=== PATIENT | male | born 1965 | race Two or more races ===

== ENCOUNTER 2025-06-08 09:23 | Inpatient (IN) | payer MEDICAID, OTHER ==
[~2025-06-08] VITALS: Ht 175.3 cm; Wt 88.5 kg
--- NOTE | 2025-06-08 10:19 | ED.PDOC ---
General HPI Comments This is a 60 year old male presenting to the ED with chief complaint of flank pain. Patient reports that he has been experiencing intermittent right sided flank pain for the past year since being in assisted. Patient relays that he had an ultrasound done 11 months ago with nothing found. Patient states his right sided flank pain worsened over the past 3 days, making it difficult to lay down. Patient denies any dysuria, hematuria, abdominal pain, fever, or chills. Chief Complaint: Flank Pain Time Seen by MD: 10:17 Reviewed notes: Nurses Notes, Medications, Allergies Allergies: Coded Allergies: Penicillins (Verified Allergy, Intermediate, 06/08/25) Information Source: Patient Mode of Arrival: Ambulatory Severity: Moderate Timing: Other (1 year) Duration: Since onset, Intermittent Prehospital treatment: None Onset: Spontaneous Symptoms: None History of: None Location: (R) Flank Penile discharge: None Modifying factors: None associated signs and symptoms: Flank Pain Past Medical History PAST MEDICAL HISTORY: Denies Surgical History: Denies all surgeries Family History Family History: Reviewed,noncontributory to illness Social History Smoker: Non-Smoker Alcohol: Denies ETOH Use Drugs: Denies Drug Use Lives In: Home Constitutional: denies: chills, diaphoresis, fatigue, fever, malaise, sweats, weakness, others EENTM: denies: blurred vision, double vision, ear bleeding, ear discharge, ear drainage, ear pain, ear ringing, eye pain, eye redness, hearing loss, mouth pain, mouth swelling, nasal discharge, nose bleeding, nose congestion, nose pain, photophobia, tearing, throat pain, throat swelling, voice changes, others Respiratory: denies: cough, hemoptysis, orthopnea, SOB at rest, shortness of breath, SOB with excertion, stridor, wheezing, others Cardiovascular: denies: chest pain, dizzy spells, diaphoresis, Dyspnea on exertion, edema, irregular heart beat, left arm pain, lightheadedness, palpitations, PND, syncope, others Gastrointestinal: denies: abdomen distended, abdominal pain, blood streaked bowels, constipated, diarrhea, dysphagia, difficulty swallowing, hematemesis, melena, nausea, poor appetite, poor fluid intake, rectal bleeding, rectal pain, vomiting, others Genitourinary: reports: flank pain; denies: burning, dysuria, frequency, hematuria, incontinence, penile discharge, penile sore, pain, testicle pain, testicle swelling, urgency, others Neurological: denies: dizziness, fainting, headache, left sided numbness, left sided weakness, numbness, paresthesia, pre-existing deficit, right sided numbness, right sided weakness, seizure, speech problems, tingling, tremors, weakness, others Musculoskeletal: denies: back pain, gout, joint pain, joint swelling, muscle pain, muscle stiffness, neck pain, others Integumetry: denies: bruises, change in color, change in hair/nails, dryness, laceration, lesions, lumps, rash, wounds, others Allergic/Immunocompromised: denies: Difficulty Healing, Frequent Infections, Hives, Itching, others Hematologic/Lymphatic: denies: anemia, blood clots, easy bleeding, easy bruising, swollen glands, others Endocrine: denies: excessive hunger, excessive sweating, excessive thirst, excessive urination, flushing, intolerance to cold, intolerance to heat, unexplained weight gain, unexplained weight loss, others Psychiatric: denies: anxiety, bipolar disorder, depression, hopeless, panic disorder, schizophrenia, sleepless, suicidal, others All Other Systems: Reviewed and Negative Physical Exam General Appearance: No Apparent Distress, Normal HEENT: Normal ENT Inspection, Pharynx Normal, TMs Normal Neck: Full Range of Motion, Non-Tender, Normal, Normal Inspection Respiratory: Chest Non-Tender, Lungs Clear, No Accessory Muscle Use, No Respiratory Distress, Normal Breath Sounds Cardiovascular: No Edema, No JVD, No Murmur, No Gallop, Normal Peripheral Pulses, Regular Rate/Rhythm Breast Exam: Deferred Gastrointestinal: No Organomegaly, Non Tender, No Pulsatile Mass, Normal Bowel Sounds, Soft Genitalia: Deferred Pelvic: Deferred Rectal: Deferred Extremities: No calf tenderness, Normal capillary refill, Normal inspection, Normal range of motion, Non-tender, No pedal edema Musculoskeletal : Location: Right Apperance: Normal, Tenderness (CVA tenderness) Neurologic: Alert, strategic planning consultant II-XII nml as Tested, No Motor Deficits, Normal Affect, Normal Mood, No Sensory Deficits Cerebellar Function: Normal Reflexes: Normal Skin: Dry, Normal Color, Warm Lymphatic: No Adenopathy Was a procedure done? Was a procedure done?: No Differential Diagnosis Kidney stone (Female): N/A Kidney stone (Male): Pyelonephritis, Strain, Urinary obstruction, Urolithiasis Urinary Problem (Male): UTI X-Ray, Labs, Meds, VS Vital Signs Date Time Temp Pulse Resp B/P (MAP) Pulse Ox O2 Delivery O2 Flow Rate FiO2 06/08/25 13:50 81 16 137/94 06/08/25 13:39 81 16 137/94 (108) 97 06/08/25 09:32 98.0 103 18 127/91 96 98.0 Lab Test 06/08/25 15:11 06/08/25 12:51 06/08/25 11:49 06/08/25 09:46 Range/Units Troponin I High Sensitivity Pending 4 5 </=54 ng/L White Blood Count 5.7 4.4-10.8 10^3/uL Red Blood Count 5.25 4.5-5.90 10^6/uL Hemoglobin 14.9 13.5-17.5 g/dL Hematocrit 45.1 41.0-53.0 % Mean Corpuscular Volume 85.8 80.0-100.0 fL Mean Corpuscular Hemoglobin 28.3 28.0-32.0 pg Mean Corpuscular Hemoglobin Concent 33.0 32.0-36.0 g/dL Red Cell Distribution Width 15.5 H 11.8-14.3 % Platelet Count 311 140-450 10^3/uL Mean Platelet Volume 7.0 6.9-10.8 fL Neutrophils (%) (Auto) 58.3 37.0-80.0 % Lymphocytes (%) (Auto) 29.8 10.0-50.0 % Monocytes (%) (Auto) 9.2 0.0-12.0 % Eosinophils (%) (Auto) 2.3 0.0-7.0 % Basophils (%) (Auto) 0.4 0.0-2.0 % Neutrophils # (Auto) 3.3 1.6-8.6 10 ^3/uL Lymphocytes # (Auto) 1.7 0.4-5.4 10 ^3/uL Monocytes # (Auto) 0.5 0-1.3 10 ^3/uL Eosinophils # (Auto) 0.1 0-0.8 10 ^3/uL Basophils # (Auto) 0 0-0.2 10 ^3/uL Nucleated Red Blood Cells 0.1 % Sodium Level 143 136-145 mmol/L Potassium Level 4.6 3.5-5.1 mmol/L Chloride Level 107 98-107 mmol/L Carbon Dioxide Level 30 20-31 mmol/L Anion Gap 6 5-15 Blood Urea Nitrogen 10 9-23 mg/dL Creatinine 1.03 0.700-1.30 mg/dL Glomerular Filtration Rate Calc 82 >90 mL/min BUN/Creatinine Ratio 9.7 L 10.0-20.0 Serum Glucose 93 74-106 mg/dL Calcium Level 9.5 8.7-10.4 mg/dL Urine Color Yellow Yellow Urine Clarity Clear Clear Urine pH 5.0 5.0-9.0 Urine Specific [place] 1.023 1.001-1.035 Urine Protein Negative Negative Urine Ketones Negative Negative Urine Blood 1+ H Negative /uL Urine Nitrite Negative Negative Urine Bilirubin Negative Negative Urine Urobilinogen Normal Negative mg/dL Urine Leukocyte Esterase Negative Negative /uL Urine RBC 1 0 - 3 /hpf Urine Microscopic WBC < 1 0-3 /HPF Urine Squamous Epithelial Cells Few <5 /hpf Urine Bacteria None seen None Seen /hpf Urine Mucus Few None Seen Urine Glucose Normal Normal mg/dL Current Medications Medications (Trade) Dose Ordered Sig/Leila Route Start Time Stop Time Status Last Admin Sodium Chloride 1,000 ml @ 1,000 mls/hr Q1H ONCE IV 06/08/25 11:30 06/08/25 12:29 DC 06/08/25 13:52 Morphine Sulfate 4 mg ONCE ONCE IV 06/08/25 11:30 06/08/25 11:31 DC 06/08/25 13:50 Ondansetron HCl (Zofran) 4 mg ONCE ONCE IV 06/08/25 11:30 06/08/25 11:31 DC 06/08/25 13:52 Time of 1ST Reevaluation: 11:16 Reevaluation 1ST: Unchanged Patient Education/Counseling: Diagnosis, Treatment Family Education/Counseling: No Family Present SEPSIS Sepsis Screen Date sepsis recognized/suspect: Jun 08, 2025 Time Sepsis recognized/suspect: 934 Recent Procedure: No On Antibiotic Therapy: No Respiratory Rate >20: No Heart Rate >90: No Temp<36 C (96.8 F) or >38.3 C: No SBP <90 or MAP <65 mmHG: No New Acute Mental Status Change: No Is the patient on CPAP, BIPAP,: No Physician Orders Ct Ab Pel With Iv Con Only (06/08/25 11:26) Chest Portable (06/08/25 11:26) Troponin-I Hs (06/08/25 14:26) Vital Signs Date Time Temp Pulse Resp B/P (MAP) Pulse Ox O2 Delivery O2 Flow Rate FiO2 06/08/25 13:50 81 16 137/94 06/08/25 13:39 81 16 137/94 (108) 97 06/08/25 09:32 98.0 103 18 127/91 96 98.0 Laboratory Tests Test 06/08/25 11:49 White Blood Count 5.7 10^3/uL (4.4-10.8) Medications Medications Dose Ordered Sig/Leila Route Start Time Stop Time Status Last Admin Dose Admin Morphine Sulfate 4 mg ONCE ONCE IV 06/08/25 11:30 06/08/25 11:31 DC 06/08/25 13:50 Ondansetron HCl 4 mg ONCE ONCE IV 06/08/25 11:30 06/08/25 11:31 DC 06/08/25 13:52 Sodium Chloride 1,000 ml @ 1,000 mls/hr Q1H ONCE IV 06/08/25 11:30 06/08/25 12:29 DC 06/08/25 13:52 Departure 1 Departure Time of Disposition: 15:36 (Patient presented with abdominal pain that was concerning for possible appendicits, gastritis, cholecystitis, colitis, gastroenteritis, sbo, or orther possible surgical emergency. Data: 1. I ordered and reviewed the result of at least 3 labs including a CBC, BMP, and Urinalysis. 2. I independently interpreted the following tests: CT Abdomen and Pelvis is concerning for inguinal hernia .Risk:This patient has a high risk of morbidity due to further diagnostic testing or treatment and may suffer from an acute abdominal process disorder. Workup reveals intractable abdominal pain and patient should be admitted for further workup. and possible expert consultation. ) Impression: Primary Impression: Intractable abdominal pain Additional Impression: Left inguinal hernia Disposition: ADMITTED INPATIENT Admit to: Med Surg Condition: Serious Critical Care Note Critical Care Time?: Yes Critical care comment: Intractable abdominal pain Authorized and Performed by: Gardenia Cross MD Total critical care time: Approximately 38 minutes Due to a high probability of clinically significant, life threatening deterioration, the patient required my highest level of preparedness to intervene emergently and I personally spent this critical care time directly and personally managing the patient. This critical care time included obtaining a history; examining the patient; pulse oximetry; ordering and review of studies; arranging urgent treatment with development of a management plan; evaluation of patient's response to treatment; frequent reassessment; and, discussions with other providers. This critical care time was performed to assess and manage the high probability of imminent, life-threatening deterioration that could result in multi-organ failure. It was exclusive of separately billable procedures and treating other patients and teaching time. Please see my other sections and the rest of the note for further information on patient assessment and treatment. Stability Stability form required: No Heart Score Heart Score: Heart Score Response (Comments) Value History N/A 0 EKG N/A 0 Age N/A 0 Risk Factors N/A 0 Troponin N/A 0 Total 0 I personally scribed for GARDENIA CROSS MD ([email or web address]) on 06/08/25 at 10:19. Electronically submitted by Pavel Mast ([email or web address]). GARDENIA CROSS MD Jun 08, 2025 10:19
--- NOTE | 2025-06-08 11:54 | DVH ---
XY CHEST PORTABLE, HISTORY: abdominal pain COMPARISON: None None TECHNICAL DATA: 1 view of the chest was obtained. FINDINGS: Lines and tubes: None Cardiomediastinal silhouette: normal Pulmonary vasculature: normal Lung expansion: normal Lung airspace: Left basilar airspace opacity could be atelectasis. Lung interstitium: normal Pleura: normal Pneumothorax: no Bones: Unremarkable Other: no IMPRESSION: Left basilar airspace opacity could be atelectasis.
[2025-06-08 12:46] LABS: Hematocrit 45.1 % (41.0-53.0); Hemoglobin 14.9 g/dL (13.5-17.5); Mean Corpuscular Hemoglobin 28.3 pg (28.0-32.0); Mean Corpuscular Volume 85.8 fL (80.0-100.0); Nucleated Red Blood Cells % 0.1 %
[2025-06-08 12:52] LABS: Anion Gap 6 (5-15); Carbon Dioxide 30 mmol/L (20-31); Chloride 107 mmol/L (98-107); Potassium 4.6 mmol/L (3.5-5.1); Sodium 143 mmol/L (136-145)
[2025-06-08 12:53] LABS: Calcium 9.5 mg/dL (8.7-10.4)
[2025-06-08 12:58] LABS: BUN/Creatinine Ratio 9.7 (10.0-20.0); Blood Urea Nitrogen 10 mg/dL (9-23); Glucose 93 mg/dL (74-106)
[2025-06-08 13:09] LABS: Urine Protein, UAD Negative (Negative)
[2025-06-08] MEDS: MORPHINE SULFATE 4 MG/ML SYR/VIAL IV ONE (13:50)
[2025-06-08] MEDS: SODIUM CHLORIDE 0.9% 1,000 ML IV ONE (13:52)
[2025-06-08] MEDS: ONDANSETRON HCL 4 MG/2 ML VIAL IV ONE (13:52)
[2025-06-08] MEDS: IOHEXOL 300 MG/ML 100ML BOTTLE IJ ONE (14:35)
--- NOTE | 2025-06-08 15:11 | DVH ---
Indication: flank pain Technique: CT axial images of the abdomen and pelvis are obtained with contrast. Coronal and sagittal reformats were obtained. Radiation Dose Information: CTDI volume is 20.18 mGy. Dose-length product is 1258.83 mGy*cm Comparison: None FINDINGS: Lung bases demonstrate atelectasis. Borderline cardiomegaly. Adrenal glands, spleen, pancreas unremarkable. No enhancing hepatic lesion. No CT evidence for cholelithiasis. No hydronephrosis. Stomach is partially distended. Small bowel loops normal in caliber. Colonic diverticular disease. Moderate volume stool in the colon. Normal appendix. Abdominal aortic atherosclerotic disease. Bladder contracted. No free pelvic fluid. Fat containing left inguinal hernia measuring 1.9 x 2.7 cm. No inguinal lymphadenopathy. [id number] bilateral sacroiliac degenerative joint disease. [id number] thoracolumbar degenerative disc disease more pronounced within the thoracic spine. IMPRESSION: No hydronephrosis. Colonic diverticular disease. Left inguinal hernia containing fat measuring 1.9 x 2.7 cm. Other findings as described
[2025-06-08] MEDS ORDERED: ONDANSETRON HCL 4 MG/2 ML VIAL IV PRN (21:00)
[2025-06-08] MEDS ORDERED: HYDROmorphone HCL 2 MG/ML VL/or syr IV PRN (21:00)
[2025-06-08] MEDS ORDERED: ACETAMINOPHEN 325 MG TAB PO PRN (21:00)
--- NOTE | 2025-06-08 22:16 | DVH ---
OB ULTRASOUND <14 WEEKS: HISTORY: pain in ruq, rule out cholecystitis/lithiasis TECHNIQUE: Multiple real-time grayscale sonographic images of the abdomen. COMPARISON: CT CT AB PEL WITH IV CON ONLY on DOS: 06/08/25 FINDINGS: Liver: Normal in size measuring 13.3 cm with mild diffuse fatty infiltration. No focal lesions. Gallbladder: No stones, distention, wall thickening, or inflammatory changes. CBD measures 0.5 cm, within normal limits. Pancreas: Not well seen due to overlying bowel gas. Right kidney: 9.4 cm. No stones or hydronephrosis. IMPRESSION: No clear cause for pain. Mild hepatic steatosis.
[2025-06-08 22:29] VITALS: PULSE 85; RESP 16; O2SAT 98
[2025-06-08 22:30] LABS: Amphetamine Screen, Urine Neg (NEGATIVE); Barbiturate Scree,Urine Neg (NEGATIVE); Benzodiazephine Screen, Urine Neg (NEGATIVE); Cannabinoid Screen, Urine Neg (NEGATIVE); Cocaine Screen, Urine Neg (NEGATIVE); Opiate Scree,Urine Neg (NEGATIVE); Phencyclidine Screen, Urine Neg (NEGATIVE)
[2025-06-08 22:31] LABS: Alanine Aminotransferase 26 U/L (7-40); Albumin 3.9 g/dL (3.2-4.8); Alkaline Phosphatase 95 U/L (46-116); Magnesium 2.0 mg/dL (1.6-2.6); Total Protein 6.5 g/dL (5.7-8.2)
[2025-06-08 22:38] LABS: Bilirubin, Direct < 0.1 mg/dL (<0.3); Bilirubin, Total 0.3 mg/dL (0.2-1.0)
[2025-06-08 22:59] VITALS: BP 141/86; PULSE 91; RESP 16; TEMP 98.1; O2SAT 95
[2025-06-08 23:03] LABS: Lipase 45 U/L (12-53)
[2025-06-08] MEDS ORDERED: AMLO1TAB23 PO (23:14)
[2025-06-08] MEDS ORDERED: ASPI-543 PO (23:14)
[2025-06-08] MEDS: PANTOPRAZOLE 40 MG/10 ML VIAL INJ IV ONE (23:25)
[2025-06-08] MEDS: POLYETHYLENE GLYCOL 17 GM PWDR PO ONE (23:25)
[2025-06-08] MEDS: BISACODYL 5 MG EC TAB PO ONE (23:26)
[2025-06-08] MEDS: HYDROcodone-ACET 5/325MG TAB PO ONE (23:27)
[2025-06-08] MEDS: ENOXAPARIN SOD 40 MG/0.4 ML SYRINGE SC SCH (23:28)
--- NOTE | 2025-06-08 23:53 | DVHHPRES ---
History of Present Illness Resident Creating Document: KINSEY REAL RESIDENT History of Present Illness 60-year-old male with a past medical history of hypertension and hepatitis-B came with chief complaints of abdominal pain. Patient reports that he has been having this pain for over a year but in the last 3 days the pain has increased, is in the upper right and lower right quadrant, 10/10 in intensity, radiates to the back, relieved by holding his breath and stretching, no aggravating factors. Patient reports having normal bowel movements and denies any urinary symptoms, GERD symptoms, nausea, vomiting, shortness of breath, chest pain, or sick contacts. He does report that he was in custodial for 1 year. Patient also reports having 3 lumps in his body- 1 in the right chest near the nipple, 1 in the left lower abdomen and 1 above the left elbow. He denies any genital symptoms or discharge. On admission he was slightly tachycardic pulse 103, rest of the vitals were stable, temp 98, RR 16, BP 147/92 mmHg, SpO2 98% on room air. CT abdomen and pelvis shows no hydronephrosis, colonic diverticulosis, left inguinal hernia with fat, moderate stool burden, sacroiliac and thoracolumbar degenerative disease. Past medical history: Hypertension, hepatitis-B Past surgical history: None Family history: Reviewed, noncontributory to the management of this case Social history: Smokes cigars once in a while, quit smoking 30 years ago, quit alcohol used to drink 1-2 beers a week and had no limit on weekend parties, denies any illicit drug abuse Allergies: Penicillin, amoxicillin PCP: Does not have 1 Code status: Full code Review of Systems Constitutional: No: Fever, Chills, Sweats, Weakness, Malaise, Other Eyes: No: Pain, Vision change, Conjunctivae inflammation, Eyelid inflammation, Other, Redness ENT: No: Ear pain, Ear discharge, Nose pain, Nose discharge, Nose congestion, Mouth pain, Mouth swelling, Throat pain, Throat swelling, Other Respiratory: No: Cough, Dry, Shortness of breath, SOB with excertion, Wheezing, Hemoptysis, Pleuritic Pain, Sputum, Wheezing, Other Cardiovascular: No: Chest Pain, Palpitations, Orthopnea, Paroxysmal Noc. Dyspnea, Edema, Lt Headedness, Other Gastrointestinal: Abdominal Pain; No: Nausea, Vomiting, Diarrhea, Constipation, Melena, Hematochezia, Other Genitourinary: No Dysuria, No Frequency, No Incontinence, No Hematuria, No Retention, No Other Musculoskeletal: No: other, neck pain, shoulder pain, arm pain, back pain, hand pain, leg pain, foot pain Skin: No: Rash, Lesions, Jaundice, Bruising, Other Neurological: No: Weakness, Numbness, Incoordination, Change in speech, Confusion, Seizures, Other Allergies: Coded Allergies: Penicillins (Verified Allergy, Intermediate, 06/08/25) Medications Current Medications Medications Dose Ordered Sig/Leila Route Start Time Stop Time Status Last Admin Dose Admin Acetaminophen/ Hydrocodone Bitart 1 tab Q4HP PRN PO 06/08/25 21:00 Ondansetron HCl 4 mg Q4HP PRN IV 06/08/25 21:00 Acetaminophen 650 mg Q6HP PRN PO 06/08/25 21:00 Enoxaparin Sodium 40 mg DAILY@2100 SC 06/08/25 21:00 06/08/25 23:28 40 MG Hydromorphone HCl 0.25 mg Q4HPRN PRN IV 06/08/25 21:00 Enalapril Maleate 10 mg DAILY PO 06/09/25 10:00 Pantoprazole Sodium 40 mg DAILY PO 06/09/25 10:00 Exam Vital Signs Vital Signs Date Time Temp Pulse Resp B/P (MAP) Pulse Ox O2 Delivery O2 Flow Rate FiO2 06/08/25 22:59 98.1 91 16 141/86 (104) 95 98.1 06/08/25 22:29 Room Air* 0 21 Exam Pt is lying on bed General Appearance: Alert, Oriented X3, Cooperative, Not in acute distress HEENT: Atraumatic, Mucous membranes moist/pink Respiratory: Clear to auscultation, Normal air movement, No added sounds Cardiovascular: Regular rate, Normal S1, Normal S2, No murmurs Abdominal: Active bowel sounds, Soft, no distention, no tenderness Extremities: No edema, Normal pulses, No tenderness/swelling Skin: No Significant rash, presence of small 1 x 1 cm lumps below right nipple, above left olecranon process of the elbow and left lower quadrant of abdomen, tender, movable Neuro: Normal speech, sensorimotor deficits none Psych/Mental Status: Mental status NL, Mood NL Labs/Xrays Labs Test 06/08/25 15:11 06/08/25 12:51 06/08/25 11:49 06/08/25 09:46 Range/Units Magnesium Level 2.0 1.6-2.6 mg/dL Total Bilirubin 0.3 0.2-1.0 mg/dL Direct Bilirubin < 0.1 <0.3 mg/dL Aspartate Amino Transferase (AST) 22 13-40 U/L Alanine Aminotransferase (ALT) 26 7-40 U/L Alkaline Phosphatase 95 46-116 U/L Troponin I High Sensitivity 4 </=54 ng/L Total Protein 6.5 5.7-8.2 g/dL Albumin 3.9 3.2-4.8 g/dL Lipase 45 12-53 U/L White Blood Count 5.7 4.4-10.8 10^3/uL Red Blood Count 5.25 4.5-5.90 10^6/uL Hemoglobin 14.9 13.5-17.5 g/dL Hematocrit 45.1 41.0-53.0 % Mean Corpuscular Volume 85.8 80.0-100.0 fL Mean Corpuscular Hemoglobin 28.3 28.0-32.0 pg Mean Corpuscular Hemoglobin Concent 33.0 32.0-36.0 g/dL Red Cell Distribution Width 15.5 H 11.8-14.3 % Platelet Count 311 140-450 10^3/uL Mean Platelet Volume 7.0 6.9-10.8 fL Neutrophils (%) (Auto) 58.3 37.0-80.0 % Lymphocytes (%) (Auto) 29.8 10.0-50.0 % Monocytes (%) (Auto) 9.2 0.0-12.0 % Eosinophils (%) (Auto) 2.3 0.0-7.0 % Basophils (%) (Auto) 0.4 0.0-2.0 % Neutrophils # (Auto) 3.3 1.6-8.6 10 ^3/uL Lymphocytes # (Auto) 1.7 0.4-5.4 10 ^3/uL Monocytes # (Auto) 0.5 0-1.3 10 ^3/uL Eosinophils # (Auto) 0.1 0-0.8 10 ^3/uL Basophils # (Auto) 0 0-0.2 10 ^3/uL Nucleated Red Blood Cells 0.1 % Sodium Level 143 136-145 mmol/L Potassium Level 4.6 3.5-5.1 mmol/L Chloride Level 107 98-107 mmol/L Carbon Dioxide Level 30 20-31 mmol/L Anion Gap 6 5-15 Blood Urea Nitrogen 10 9-23 mg/dL Creatinine 1.03 0.700-1.30 mg/dL Glomerular Filtration Rate Calc 82 >90 mL/min BUN/Creatinine Ratio 9.7 L 10.0-20.0 Serum Glucose 93 74-106 mg/dL Calcium Level 9.5 8.7-10.4 mg/dL B-Type Natriuretic Peptide 2.85 0-100 pg/mL HIV (1&2) Antibody Negative Negative Urine Color Yellow Yellow Urine Clarity Clear Clear Urine pH 5.0 5.0-9.0 Urine Specific [place] 1.023 1.001-1.035 Urine Protein Negative Negative Urine Ketones Negative Negative Urine Blood 1+ H Negative /uL Urine Nitrite Negative Negative Urine Bilirubin Negative Negative Urine Urobilinogen Normal Negative mg/dL Urine Leukocyte Esterase Negative Negative /uL Urine RBC 1 0 - 3 /hpf Urine Microscopic WBC < 1 0-3 /HPF Urine Squamous Epithelial Cells Few <5 /hpf Urine Bacteria None seen None Seen /hpf Urine Mucus Few None Seen Urine Glucose Normal Normal mg/dL Urine Opiates Screen Neg NEGATIVE Urine Fentanyl Screen Neg NEGATIVE Urine Barbiturates Screen Neg NEGATIVE Urine Phencyclidine Screen Neg NEGATIVE Urine Amphetamines Screen Neg NEGATIVE Urine Benzodiazepines Screen Neg NEGATIVE Urine Cocaine Screen Neg NEGATIVE Urine Cannabinoids Screen Neg NEGATIVE SEPSIS Sepsis Screen Date sepsis recognized/suspect: Jun 08, 2025 Time Sepsis recognized/suspect: 2228 Recent Procedure: No On Antibiotic Therapy: No Respiratory Rate >20: No Heart Rate >90: No Temp<36 C (96.8 F) or >38.3 C: No SBP <90 or MAP <65 mmHG: No New Acute Mental Status Change: No Is the patient on CPAP, BIPAP,: No Physician Orders Cardiac Diet-2gna,Lofat,Lochol (06/08/25 Dinner) Admit (06/08/25 20:52) Code Status (06/08/25 20:52) Hydrocodone-Acet 5/325mg Tab ([place] (06/08/25 21:00) Ondansetron Hcl (Zofran) (06/08/25 21:00) Complete Blood Count (06/09/25 04:00) Comprehensive Metabolic Panel (06/09/25 04:00) Echo 2d Mode Cardiac Dop (06/08/25 20:52) Condition: Fair (06/08/25 20:52) Acetaminophen Tablet (Tylenol Tablet) (06/08/25 21:00) Enoxaparin Sodium (Lovenox) (06/08/25 21:00) Comprehensive Hepatitis Panel (06/08/25 20:52) Chlamydia/Gc Amplification (06/08/25 20:52) Hydromorphone Injection (Dilaudid Inject (06/08/25 21:00) Enalapril Tablet (Vasotec Tablet) (06/09/25 10:00) Pantoprazole Tablet (Protonix Tablet) (06/09/25 10:00) LIVER (06/08/25 20:52) Incentive Spirometry Q 1hr (06/08/25 20:52) Hepatitis C Antibody (06/08/25 20:52) Vital Signs Date Time Temp Pulse Resp B/P (MAP) Pulse Ox O2 Delivery O2 Flow Rate FiO2 06/08/25 22:59 98.1 91 16 141/86 (104) 95 98.1 06/08/25 22:29 85 16 98 Room Air* 0 21 06/08/25 22:29 95 16 142/89 (106) 95 06/08/25 19:00 85 16 147/92 (110) 98 06/08/25 16:32 88 16 135/90 (105) 98 Medications Medications Dose Ordered Sig/Leila Route Start Time Stop Time Status Last Admin Dose Admin Acetaminophen/ Hydrocodone Bitart 1 tab ONCE ONCE PO 06/08/25 21:00 06/08/25 21:39 DC 06/08/25 23:27 1 TAB Bisacodyl 10 mg ONCE ONCE PO 06/08/25 21:00 06/08/25 21:39 DC 06/08/25 23:26 10 MG Enoxaparin Sodium 40 mg DAILY@2100 SC 06/08/25 21:00 06/08/25 23:28 40 MG Pantoprazole Sodium 40 mg ONCE ONCE IV 06/08/25 21:00 06/08/25 21:39 DC 06/08/25 23:25 40 MG Polyethylene Glycol 17 gm ONCE ONCE PO 06/08/25 21:00 06/08/25 21:39 DC 06/08/25 23:25 17 GM Assessment/Plan Assessment/Plan #Intractable abdominal, likely due to constipation #Slow transit constipation #hx of hepatitis B #Rule out venereal disease - CT abdomen shows: No hydronephrosis; Colonic diverticular disease; Left inguinal hernia containing fat measuring 1.9 x 2.7 cm; Moderate volume stool in the colon. - MiraLAX 17 g p.o. given once - pain medication with: acetaminophen 650 mg q.6 PRN for mild pain [place] 5/325 mg p.o. q.4 PRN for moderate pain - IV ondansetron 4 mg PRN - IV fluids normal saline 0.9% - Protonix 40 mg IV daily - comprehensive hepatitis panel - chlamydia / GC amplification - HIV 1 and 2 antibody negative - ultrasound liver shows mild hepatic steatosis - UDS negative - UA negative #Hypertension -Continue home medication enalapril 10 mg p.o. daily - bilateral +1 pitting edema- BNP, echo - chest x-ray shows left basilar airspace opacity could be atelectasis- incentive spirometry begun #Colonic diverticular disease #Thoracolumbar and sacroiliac degenerative joint disease - CT abdomen and pelvis shows incidental finding- [id number] bilateral sacroiliac degenerative joint disease. [id number] thoracolumbar degenerative disc disease more pronounced within the thoracic spine. - outpatient follow up GI prophylaxis: Protonix 40 mg IV daily DVT prophylaxis: Lovenox 40 mg SC daily Diet: Cardiac diet Goals of care discussed with the patient for more than 27 minutes: Full code status Case discussed with Dr. Griffin, patient Plan discussed with: Patient My Orders Orders - KINSEY REAL RESIDENT Procedure Category Date Status Time Admit ADMIT 06/08/25 Transmitted 20:52 Code Status CODE 06/08/25 Transmitted 20:52 Hydrocodone-Acet PHA 06/08/25 In Process 5/325mg Tab ([place] 21:00 Ondansetron Hcl PHA 06/08/25 In Process (Zofran) 21:00 Complete Blood Count LAB 06/09/25 Verified 04:00 Comprehensive LAB 06/09/25 Verified Metabolic Panel 04:00 Echo 2d Mode Cardiac US 06/08/25 Logged DOP 20:52 Condition: Fair LIYAH 06/08/25 In Process 20:52 Acetaminophen Tablet PHA 06/08/25 In Process (Tylenol Tablet) 21:00 Enoxaparin Sodium PHA 06/08/25 In Process (Lovenox) 21:00 Comprehensive LAB 06/08/25 In Process Hepatitis Panel 20:52 Chlamydia/Gc LAB 06/08/25 In Process Amplification 20:52 Hydromorphone PHA 06/08/25 In Process Injection (Dilaudid 21:00 Enalapril Tablet PHA 06/09/25 In Process (Vasotec Tablet) 10:00 Pantoprazole Tablet PHA 06/09/25 In Process (Protonix Tablet) 10:00 LIVER US 06/08/25 Resulted 20:52 Incentive Spirometry ORDERS 06/08/25 Transmitted Q 1hr 20:52 Hepatitis C Antibody LAB 06/08/25 In Process 20:52 Date of Service: Jun 09, 2025 Billing Provider: SAMANTHA GRIFFIN MD Common Visit Codes: 52749-LUNFOER INP/OBS CARE (HIGH) Secondary Visit Codes: 74257-[id number] CARE PLAN 30 MINUTES KINSEY REAL RESIDENT Jun 08, 2025 23:53
[2025-06-09] VITALS (8 sets, daily range): BP systolic 115–138; BP diastolic 72–95; PULSE 68–136; RESP 16–18; TEMP 97.6–98.5; O2SAT 96–99
[2025-06-09 05:57] LABS: Hematocrit 40.4 % (41.0-53.0); Hemoglobin 13.3 g/dL (13.5-17.5); Mean Corpuscular Hemoglobin 28.2 pg (28.0-32.0); Mean Corpuscular Volume 85.7 fL (80.0-100.0); Nucleated Red Blood Cells % 0.1 %
[2025-06-09 06:29] LABS: Alanine Aminotransferase 18 U/L (7-40); Albumin 3.5 g/dL (3.2-4.8); Alkaline Phosphatase 73 U/L (46-116); Anion Gap 7 (5-15); BUN/Creatinine Ratio 10.5 (10.0-20.0); Blood Urea Nitrogen 10 mg/dL (9-23); Calcium 8.9 mg/dL (8.7-10.4); Carbon Dioxide 27 mmol/L (20-31); Chloride 109 mmol/L (98-107); Glucose 101 mg/dL (74-106); Potassium 4.2 mmol/L (3.5-5.1); Sodium 143 mmol/L (136-145); Total Protein 5.8 g/dL (5.7-8.2)
[2025-06-09 06:30] LABS: Bilirubin, Total 0.3 mg/dL (0.2-1.0)
[2025-06-09] MEDS: ENALAPRIL MALEATE 10 MG TAB PO SCH (10:01)
[2025-06-09] MEDS: PANTOPRAZOLE 40 MG TAB PO SCH (10:01)
[2025-06-09] MEDS: HYDROcodone-ACET 5/325MG TAB PO PRN (10:02)
[2025-06-09] MEDS: LACTATED RINGER'S 1,000 ML IV SCH (13:02)
--- NOTE | 2025-06-09 13:53 | DVHPNRES ---
Progress Note Date Seen: Jun 09, 2025 Resident Creating Document: JHONNY HIGGINS RESIDENT Medical Necessity Reason Pt with a Central, PICC or Fol: No Subjective Review of Systems 60-year-old male with a past medical history of hypertension, hepatitis-B, dyslipidemia, osteoarthritis presented with complaints of left-sided abdominal pain radiating to the back. He states that he can not sleep because of the pain. He rated the pain 10 on 10 in intensity, sharp, on and off, decreased on sitting straight. Patient states that the pain started 1 year ago while he was in the detention but aggravated 3 days back. He reports of having normal bowel movements and denies any urinary symptoms, GERD symptoms, nausea vomiting or shortness of breath. Patient also complains of having 3 lumps in his body, the chest, abdomen and elbow. PMHx:hypertension, hepatitis-B, dyslipidemia, osteoarthritis PSHx: None Family history: Nonrelevant Social history: 25 pack-year smoking history, denies alcohol and drug use, lives in a transitional house Allergic history: Penicillin, amoxicillin General: patient denies fever, fatigue, weaknes, sweating, any recent changes in appetite and weight HEENT: No headaches, visiual changes, hearing loss, tinnitus, nasal congestion and discharge, and sore throat. Cardiovascular: Denies chest pain, palpitations, dyspnea on exertion, orthopnea, or claudication. Respiratory: No cough, and wheezing. Gastrointestinal: Denies nausea, vomiting, dysphagia, odynophagia, heartburn, flatulence, bloating, diarrhea, constipation, change in stool, or blood in stool. Complains of abdominal pain Genitourinary: No dysuria, hematuria, discharge, frequency, urgency, nocturia, incontinence, and urinary retention. Endocrine: No heat or cold intolerance, polydipsia, polyuria, and polyphagia. Neurological: No dizziness, extremity weakness and numbness, tremors, gait disturbance, seizures, and memory impairment. Psychiatric: Denies depression, anxiety,or insomnia. Musculoskeletal: Denies neck pain, stiffness and swelling, back pain, muscle weakness, joint pain, stiffness, swelling, or limited range of motion. Skin: No rashes, itching, skin lesion, changes in hair, nail, skin texture and breast. Hematologic/Lymphatic: Denies easy bruising, bleeding tendencies, or lymph node enlargement. Objective vital signs Vital Sign Date Time Temp Pulse Resp B/P (MAP) Pulse Ox O2 Delivery O2 Flow Rate FiO2 06/09/25 10:01 134/95 06/09/25 08:00 70 16 97 Room Air* 0 21 06/09/25 05:00 97.7 97.7 Total Intake and Output 06/08/25 06/08/25 06/09/25 15:00 23:00 07:00 Intake Total 1000 ml 0 ml Output Total 0 ml Balance 1000 ml 0 ml medications Current Medications Medications Dose Ordered Sig/Leila Route Start Time Stop Time Status Last Admin Dose Admin Acetaminophen/ Hydrocodone Bitart 1 tab Q4HP PRN PO 06/08/25 21:00 06/09/25 10:02 1 TAB Ondansetron HCl 4 mg Q4HP PRN IV 06/08/25 21:00 Acetaminophen 650 mg Q6HP PRN PO 06/08/25 21:00 Enoxaparin Sodium 40 mg DAILY@2100 SC 06/08/25 21:00 06/08/25 23:28 40 MG Hydromorphone HCl 0.25 mg Q4HPRN PRN IV 06/08/25 21:00 Enalapril Maleate 10 mg DAILY PO 06/09/25 10:00 06/09/25 10:01 10 MG Pantoprazole Sodium 40 mg DAILY PO 06/09/25 10:00 06/09/25 10:01 40 MG Lactated Ringer's 1,000 ml @ 100 mls/hr Q10H IV 06/09/25 10:45 06/09/25 13:02 100 MLS/HR Examination General Appearance: Alert, Oriented X3, Cooperative, No acute distress HEENT: Atraumatic, PERRLA, EOMI, Mucous membrane moist/pink Respiratory: Clear to auscultation, Normal air movement Cardiovascular: Regular rate, Normal S1, Normal S2, No murmurs, no chest wall tenderness Abdominal: Normal bowel sounds, Soft, No tenderness, No hepatospenomegaly, No masses Extremities: No clubbing, No cyanosis, No edema, Normal pulses, No tenderness/swelling Skin: No rashes, No breakdown, 3 small tender lumps palpated in the chest, abdomen and elbow Neuro: Normal gait, Normal speech, Strength at 5/5 X4 ext, Normal tone, Sensation intact, Cranial nerves 3-12 NL, Reflexes 2+ Psych/Mental Status: Mental status NL, Mood NL laboratory and microbiology Laboratory Tests 06/09/25 05:17 Test 06/09/25 05:17 Range/Units Serum Glucose 101 74-106 mg/dL Problem List/Assessment/Plan Problem List/Assessment/Plan Assessment and plan #Intractable abdominal, likely due to hepatic steatosis #rule out pancreatitis #rule out hepatocellular carcinoma #Rule out cholelithiasis #hx of hepatitis B #Rule out venereal disease #Slow transit constipation - elevated lipase - CT abdomen shows: No hydronephrosis; Colonic diverticular disease; Left inguinal hernia containing fat measuring 1.9 x 2.7 cm; Moderate volume stool in the colon. - MiraLAX 17 g p.o. given once - pain medication with: acetaminophen 650 mg q.6 PRN for mild pain [place] 5/325 mg p.o. q.4 PRN for moderate pain - IV ondansetron 4 mg PRN - IV fluids normal saline 0.9% - Protonix 40 mg IV daily - comprehensive hepatitis panel - chlamydia / GC amplification - HIV 1 and 2 antibody negative - ultrasound liver shows mild hepatic steatosis - UDS negative - UA negative - hepatitis panel #Left inguinal hernia - follow up with PCP on discharge #essential hypertension -Continue home medication enalapril 10 mg p.o. daily - bilateral +1 pitting edema- BNP, echo - chest x-ray shows left basilar airspace opacity could be atelectasis- incentive spirometry begun #Colonic diverticular disease #Thoracolumbar and sacroiliac degenerative joint disease - CT abdomen and pelvis shows incidental finding- [id number] bilateral sacroiliac degenerative joint disease. [id number] thoracolumbar degenerative disc disease more pronounced within the thoracic spine. - outpatient follow up GI prophylaxis: Protonix 40 mg IV daily DVT prophylaxis: Lovenox 40 mg SC daily Diet: Cardiac diet Case discussed with Dr. Best Plan discussed with: Patient Date of Service: Jun 09, 2025 Billing Provider: PAULINO BEST MD Common Visit Codes: [id number] INP/OBS CARE(HIGH) JHONNY HIGGINS RESIDENT Jun 09, 2025 13:53 PAULINO BEST MD Jun 11, 2025 17:08
[2025-06-09 16:02] LABS: INR 1.04 (0.9-1.15); Prothrombin Time 11.0 sec (9.3-11.8)
[2025-06-09] MEDS: MAGNESIUM OXIDE 400 MG TAB PO SCH (21:48)
[2025-06-10] VITALS (7 sets, daily range): BP systolic 125–141; BP diastolic 85–90; PULSE 62–78; RESP 16–19; TEMP 36.4; O2SAT 97–99
[2025-06-10 05:55] LABS: Hematocrit 38.6 % (41.0-53.0); Hemoglobin 13.0 g/dL (13.5-17.5); Mean Corpuscular Hemoglobin 29.0 pg (28.0-32.0); Mean Corpuscular Volume 86.2 fL (80.0-100.0); Nucleated Red Blood Cells % 0.0 %
[2025-06-10 06:17] LABS: Alanine Aminotransferase 17 U/L (7-40); Albumin 3.4 g/dL (3.2-4.8); Alkaline Phosphatase 77 U/L (46-116); Anion Gap 7 (5-15); BUN/Creatinine Ratio 12.5 (10.0-20.0); Blood Urea Nitrogen 11 mg/dL (9-23); Calcium 8.9 mg/dL (8.7-10.4); Carbon Dioxide 28 mmol/L (20-31); Chloride 107 mmol/L (98-107); Lipase 43 U/L (12-53); Potassium 4.2 mmol/L (3.5-5.1); Sodium 142 mmol/L (136-145); Total Protein 5.8 g/dL (5.7-8.2)
[2025-06-10 06:28] LABS: Bilirubin, Total 0.2 mg/dL (0.2-1.0); Glucose 108 mg/dL (74-106)
[2025-06-10 12:48] LABS: Hepatitis A Total Antibody Positive (Negative); Hepatitis B Surface Antigen Negative (Negative); Hepatitis C Antibody Negative (Negative)
--- NOTE | 2025-06-10 14:28 | DVHDSRES ---
Discharge Summary Date of Admission Resident Creating Document: JHONNY HIGGINS RESIDENT Jun 08, 2025 at 20:52 Date of Discharge: Jun 10, 2025 Labs/Diagnostic Data: Laboratory Results Test 06/10/25 05:29 06/09/25 16:26 06/09/25 15:21 06/09/25 09:39 White Blood Count 5.6 10^3/uL (4.4-10.8) Red Blood Count 4.47 10^6/uL (4.5-5.90) Hemoglobin 13.0 g/dL (13.5-17.5) Hematocrit 38.6 % (41.0-53.0) Mean Corpuscular Volume 86.2 fL (80.0-100.0) Mean Corpuscular Hemoglobin 29.0 pg (28.0-32.0) Mean Corpuscular Hemoglobin Concent 33.7 g/dL (32.0-36.0) Red Cell Distribution Width 15.7 % (11.8-14.3) Platelet Count 258 10^3/uL (140-450) Mean Platelet Volume 6.8 fL (6.9-10.8) Neutrophils (%) (Auto) 49.4 % (37.0-80.0) Lymphocytes (%) (Auto) 36.6 % (10.0-50.0) Monocytes (%) (Auto) 9.9 % (0.0-12.0) Eosinophils (%) (Auto) 3.6 % (0.0-7.0) Basophils (%) (Auto) 0.5 % (0.0-2.0) Neutrophils # (Auto) 2.7 10 ^3/uL (1.6-8.6) Lymphocytes # (Auto) 2.0 10 ^3/uL (0.4-5.4) Monocytes # (Auto) 0.5 10 ^3/uL (0-1.3) Eosinophils # (Auto) 0.2 10 ^3/uL (0-0.8) Basophils # (Auto) 0 10 ^3/uL (0-0.2) Nucleated Red Blood Cells 0.0 % Sodium Level 142 mmol/L (136-145) Potassium Level 4.2 mmol/L (3.5-5.1) Chloride Level 107 mmol/L (98-107) Carbon Dioxide Level 28 mmol/L (20-31) Anion Gap 7 (5-15) Blood Urea Nitrogen 11 mg/dL (9-23) Creatinine 0.88 mg/dL (0.700-1.30) Glomerular Filtration Rate Calc 97 mL/min (>90) BUN/Creatinine Ratio 12.5 (10.0-20.0) Serum Glucose 108 mg/dL (74-106) Calcium Level 8.9 mg/dL (8.7-10.4) Total Bilirubin 0.2 mg/dL (0.2-1.0) Aspartate Amino Transferase (AST) 17 U/L (13-40) Alanine Aminotransferase (ALT) 17 U/L (7-40) Alkaline Phosphatase 77 U/L (46-116) Total Protein 5.8 g/dL (5.7-8.2) Albumin 3.4 g/dL (3.2-4.8) Lipase 43 U/L (12-53) Stool Occult Blood Negative (Negative) Stool Occult Blood Sample #3 (Negative) Prothrombin Time 11.0 sec (9.3-11.8) Prothrombin Time INR 1.04 (0.9-1.15) Lactic Acid Level 1.3 mmol/L (0.4-2.0) Test 06/09/25 05:17 06/08/25 15:11 06/08/25 12:51 06/08/25 11:49 Hemoglobin A1c 6.3 % A1C (<5.7) Magnesium Level 2.0 mg/dL (1.6-2.6) Direct Bilirubin < 0.1 mg/dL (<0.3) Troponin I High Sensitivity 4 ng/L (</=54) Hepatitis A Antibody Total Positive (Negative) Hepatitis B Surface Antigen Negative (Negative) Hepatitis B Surface Antibody Positive (Negative) Hepatitis B Core Total Antibody React (Negative) Hepatitis C Antibody Negative (Negative) B-Type Natriuretic Peptide 2.85 pg/mL (0-100) HIV (1&2) Antibody Negative (Negative) Test 06/08/25 09:46 Urine Color Yellow (Yellow) Urine Clarity Clear (Clear) Urine pH 5.0 (5.0-9.0) Urine Specific [place] 1.023 (1.001-1.035) Urine Protein Negative (Negative) Urine Ketones Negative (Negative) Urine Blood 1+ /uL (Negative) Urine Nitrite Negative (Negative) Urine Bilirubin Negative (Negative) Urine Urobilinogen Normal mg/dL (Negative) Urine Leukocyte Esterase Negative /uL (Negative) Urine RBC 1 /hpf (0 - 3) Urine Microscopic WBC < 1 /HPF (0-3) Urine Squamous Epithelial Cells Few /hpf (<5) Urine Bacteria None seen /hpf (None Seen) Urine Mucus Few (None Seen) Urine Glucose Normal mg/dL (Normal) Urine Opiates Screen Neg (NEGATIVE) Urine Fentanyl Screen Neg (NEGATIVE) Urine Barbiturates Screen Neg (NEGATIVE) Urine Phencyclidine Screen Neg (NEGATIVE) Urine Amphetamines Screen Neg (NEGATIVE) Urine Benzodiazepines Screen Neg (NEGATIVE) Urine Cocaine Screen Neg (NEGATIVE) Urine Cannabinoids Screen Neg (NEGATIVE) Other Laboratory Tests 06/10/25 05:29 Brief Hx & Hospital Course: 60-year-old male with a past medical history of hypertension, hepatitis-B, dyslipidemia, osteoarthritis presented with complaints of left-sided abdominal pain radiating to the back. He stated that he can not sleep because of the pain. He rated the pain 10 on 10 in intensity, sharp, on and off, decreased on sitting straight. Patient states that the pain started 1 year ago while he was in the snf but aggravated 3 days back. He reports of having normal bowel movements and denies any urinary symptoms, GERD symptoms, nausea vomiting or shortness of breath. Patient also complained of having 3 lumps in his body, the chest, abdomen and elbow. liver ultrasound showed mild hepatic steatosis. CT abdomen showed colonic diverticular disease and left inguinal hernia containing fat measuring 1.9 x 2.7 cm. During the course of the hospitalization, the patient was better and clinically and is hence being discharged. Condition at Discharge: Fair Final Diagnosis/Problems List #Intractable abdominal pain, likely due to hepatic steatosis #ruled out pancreatitis #Colonic diverticular disease #Thoracolumbar and sacroiliac degenerative joint disease #ruled out hepatocellular carcinoma #Ruled out cholelithiasis #hx of hepatitis B #Ruled out venereal disease #Slow transit constipation #Left inguinal hernia #essential hypertension Discharge Disposition: Home Discharge Instruct/Medications Diet: Cardiac 2g Na,low cholest Activity: No Restrictions, As Tolerated Follow Up/Referral: F/u with PCP in 7 days Medications: As per EHR Scheduled Amlodipine Besylate (Amlodipine Besylate), 1 TAB PO DAILY, (Reported) Calcium Carbonate-Simethicone (Maalox Max 1000-60 mg), 1 CHW PO BID Pantoprazole Sodium Sesquihydr (Pantoprazole Sodium), 40 MG PO DAILY Discontinued Medications Aspirin (Aspir-Low), 81 MG PO DAILY, (Reported) Discharge Statement: "Patient was advised to return to the ER or call 911 if any headaches, dizziness, shortness of breath, chest pain, abdominal pain, bleeding, fevers, or worsening of medical condition. Patient was counseled about treatment plan, medications, possible side effects, patientverbalized understanding. All questions were answered to the best of my ability. This discharge took greater then 30 minutes in planning, reviewing documentation, counseling the patient, and discussing with other team members." ASSESSMENT ASSESSMENT Assessment Hepatic Steatosis Colonic Diverticulosis Date of Service: Jun 10, 2025 Billing Provider: APULINO MATTA MD Common Visit Codes: 34134-EVP/OBS DISCH DAY >30min JHONNY HIGGINS RESIDENT Jun 10, 2025 14:28 PAULINO MATTA MD Jun 11, 2025 17:08
[2025-06-10] MEDS ORDERED: [UNRECOGNIZED DRUG - CODE] PO (14:52)
[2025-06-10] MEDS ORDERED: PANT40T PO (14:52)
[2025-06-11 01:07] LABS: Chlamydia Trachomatis, NAA Negative (Negative); Neisseria gonorrhoeae, NAA Negative (Negative)
--- NOTE | 2025-06-13 10:27 | DVHSR ---
APPROVED REPORT EXAM: Two-dimensional and M-mode echocardiogram with Doppler and color Doppler. Blood Pressure: 138/90 mmHg INDICATION Chest Pain RISK FACTORS Height: 5'9", Weight: 195 DIMENSIONS LVDd 4.3 (3.8-5.7cm) LA (2D) 3.6 (1.9-4.0cm) Aortic Root 3.9 (2.0-3.7cm) LVDs 2.9 (2.5-4.0cm) LA (MM) (1.9-4.0cm) Aortic Cusp Exc 2.5 (1.5-2.0cm) EF (%) 60.0 (55-70%) Rt. Atrium 4.0 (1.9-4.0cm) Asc. Aorta cm IVSd 1.1 (0.7-1.1cm) RV (D) (1.8-2.4cm) PWd 1.0 (0.7-1.1cm) Mitral Valve Mitral Mitral Stenosis E wave 0.84m/s MV Mean GR. mmHg A wave 0.86m/s MV Peak GR. mmHg E/A ratio 1.0 2D MVA cm2 DECEL Time 176ms PRESS 1/2 Time ms Aortic Valve Aortic Valve Aortic Stenosis V1 1.04m/s AO Mean GR. mmHg V2 1.08m/s AO Peak GR. 5mmHg LVOT Diameter 2.4 (1.8-2.4cm) Doppler SHAYLA 4.35cm2 Pulmonic Valve V2 1.02m/s Other Information Quality : Technically Limited Rhythm : Technically limited study due to patient position. Conclusion lvef 50-55% mild left atrium enlarged mild eccentric posteriorly directed mitral regurg
== END 2025-06-10 17:30 | disposition home or self-care (01) ==
LOC: ER 09:30 → OVERFLOW 20:52 → EAST 21:29
PROVIDERS: ADMIT Internal Medicine Geriatric Medicine; ATTEND Internal Medicine Geriatric Medicine
DX: K76.0 Fatty (change of) liver, not elsewhere classified (principal); I10 Essential (primary) hypertension; K40.90 Unilateral inguinal hernia, without obstruction or gangrene, not specified as recurrent; K57.30 Diverticulosis of large intestine without perforation or abscess without bleeding; K59.01 Slow transit constipation; M47.895 Other spondylosis, thoracolumbar region; M47.898 Other spondylosis, sacral and sacrococcygeal region; Z79.899 Other long term (current) drug therapy
CPT/HCPCS: 36415; 71045; 74177; 76705; 80048; 80053; 80076; 80307; 81001; 82270; 83036; 83605; 83690; 83735; 83880; 84484; 85025; 85610; 86703; 86704; 86706; 86708; 86803; 87340; 93306; 96361; 96372; 96374; 96375; 99291; G0378; J2405; J2470

== ENCOUNTER 2025-07-13 15:36 | Inpatient (IN) | payer MEDICAID ==
[~2025-07-13] VITALS: Ht 175.3 cm; Wt 89.3 kg
[~2025-07-13 15:36] MED LIST: AMLO1TAB23 PO; PANT40T PO; [UNRECOGNIZED DRUG - CODE] PO
--- NOTE | 2025-07-13 15:53 | ECG ---
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
--- NOTE | 2025-07-13 16:03 | ED.PDOC ---
History of Present Illness HPI Comments 60-year-old male presents to the ER with a chief complaint of palpitations. Patient reports on being in the hospital due from having a medical appointment with his PCP for a checkup, when they informed him to go to the ER due from his heart rate being elevated. Patient has started to have lightheadedness and headache s/p being informed of elevated heart rate. Denies any other symptoms at this time. Denies chills, fever, N/V/D, SOB, CP. No other associated symptoms, modifiers, recent injuries or sick contacts present at this time. Chief Complaint: Palpitations Time Seen by MD: 16:00 Reviewed Notes: Nurses Notes, Medications, Allergies Allergies: Coded Allergies: Penicillins (Verified Allergy, Intermediate, 06/08/25) Home Meds Active Scripts Calcium Carbonate-Simethicone (Maalox Max 1000-60 mg) 1 Chw Chw, 1 CHW PO BID for 30 Days, TAB.CHEW Prov:HUMA GARCIA 06/10/25 Pantoprazole Sodium Sesquihydr (Pantoprazole Sodium) 40 Mg Tab, 40 MG PO DAILY for 30 Days, #30 TAB Prov:HUMA GARCIA 06/10/25 Reported Medications Amlodipine Besylate (Amlodipine Besylate) 10 Mg Tab, 1 TAB PO DAILY, #30 TAB 5 Refills 06/08/25 Information Source: Patient Mode of Arrival: Ambulatory Severity: Moderate Timing: Minutes Duration: Since onset, Minutes Prehospital treatment: None Past Medical History PAST MEDICAL HISTORY: Denies Surgical History: Denies all surgeries Family History Family History: Reviewed,noncontributory to illness, Unknown Social History Smoker: Non-Smoker Alcohol: Denies ETOH Use Drugs: Denies Drug Use Lives In: Home Constitutional: denies: chills, diaphoresis, fatigue, fever, malaise, sweats, weakness, others EENTM: denies: blurred vision, double vision, ear bleeding, ear discharge, ear drainage, ear pain, ear ringing, eye pain, eye redness, hearing loss, mouth pain, mouth swelling, nasal discharge, nose bleeding, nose congestion, nose pain, photophobia, tearing, throat pain, throat swelling, voice changes, others Respiratory: denies: cough, hemoptysis, orthopnea, SOB at rest, shortness of breath, SOB with excertion, stridor, wheezing, others Cardiovascular: reports: lightheadedness, palpitations; denies: chest pain, dizzy spells, diaphoresis, Dyspnea on exertion, edema, irregular heart beat, left arm pain, PND, syncope, others Gastrointestinal: denies: abdomen distended, abdominal pain, blood streaked victorino wels, constipated, diarrhea, dysphagia, difficulty swallowing, hematemesis, melena, nausea, poor appetite, poor fluid intake, rectal bleeding, rectal pain, vomiting, others Genitourinary: denies: burning, dysuria, flank pain, frequency, hematuria, incontinence, penile discharge, penile sore, pain, testicle pain, testicle swelling, urgency, others Neurological: reports: headache; denies: dizziness, fainting, left sided numbness, left sided weakness, numbness, paresthesia, pre-existing deficit, right sided numbness, right sided weakness, seizure, speech problems, tingling, tremors, weakness, others Musculoskeletal: denies: back pain, gout, joint pain, joint swelling, muscle pain, muscle stiffness, neck pain, others Integumetry: denies: bruises, change in color, change in hair/nails, dryness, laceration, lesions, lumps, rash, wounds, others Allergic/Immunocompromised: denies: Difficulty Healing, Frequent Infections, Hives, Itching, others Hematologic/Lymphatic: denies: anemia, blood clots, easy bleeding, easy bruising, swollen glands, others Endocrine: denies: excessive hunger, excessive sweating, excessive thirst, excessive urination, flushing, intolerance to cold, intolerance to heat, unexplained weight gain, unexplained weight loss, others Psychiatric: denies: anxiety, bipolar disorder, depression, hopeless, panic dis order, schizophrenia, sleepless, suicidal, others All Other Systems: Reviewed and Negative Physical Exam Exam Comments Tachycardic General Appearance: No Apparent Distress, Normal HEENT: Normal ENT Inspection, Pharynx Normal, TMs Normal Neck: Full Range of Motion, Non-Tender, Normal, Normal Inspection Respiratory: Chest Non-Tender, Lungs Clear, No Accessory Muscle Use, No Respiratory Distress, Normal Breath Sounds Cardiovascular: No Edema, No JVD, No Murmur, No Gallop, Normal Peripheral Pulses, Tachycardia Breast Exam: Deferred Gastrointestinal: No Organomegaly, Non Tender, No Pulsatile Mass, Normal Bowel Sounds, Soft Genitalia: Deferred Pelvic: Deferred Rectal: Deferred Extremities: No calf tenderness, Normal capillary refill, Normal inspection, Normal range of motion, Non-tender, No pedal edema Musculoskeletal : Apperance: Normal Neurologic: Alert, cigarette lighter repairer II-XII nml as Tested, No Motor Deficits, Normal Affect, Normal Mood, No Sensory Deficits Cerebellar Function: Normal Reflexes: Normal Skin: Dry, Normal Color, Warm Lymphatic: No Adenopathy Was a procedure done? Was a procedure done?: No EKG EKG : Pulse Rate (adult): 154 [place]: Normal Cardiac Rhythm: ST Block: None Hypertrophy: None ST: Normal Differential Dx Considerations may include: ACS, CVA, electrolyte abnormality, infectious etiology X-Ray, Labs, Meds, VS Vital Signs Date Time Temp Pulse Resp B/P (MAP) Pulse Ox O2 Delivery O2 Flow Rate FiO2 07/13/25 16:25 86 07/13/25 16:09 86 29 95 Room Air* 0 21 07/13/25 16:09 98.3 89 18 138/102 (114) 97 98.3 07/13/25 16:03 154 07/13/25 15:50 154 07/13/25 15:39 97.7 154 18 141/100 97 97.7 Lab Test 07/13/25 16:00 Range/Units White Blood Count 7.5 4.4-10.8 10^3/uL Red Blood Count 5.33 4.5-5.90 10^6/uL Hemoglobin 15.3 13.5-17.5 g/dL Hematocrit 45.8 41.0-53.0 % Mean Corpuscular Volume 85.8 80.0-100.0 fL Mean Corpuscular Hemoglobin 28.7 28.0-32.0 pg Mean Corpuscular Hemoglobin Concent 33.5 32.0-36.0 g/dL Red Cell Distribution Width 16.1 H 11.8-14.3 % Platelet Count 301 140-450 10^3/uL Mean Platelet Volume 7.0 6.9-10.8 fL Neutrophils (%) (Auto) 61.5 37.0-80.0 % Lymphocytes (%) (Auto) 25.2 10.0-50.0 % Monocytes (%) (Auto) 10.6 0.0-12.0 % Eosinophils (%) (Auto) 2.1 0.0-7.0 % Basophils (%) (Auto) 0.6 0.0-2.0 % Neutrophils # (Auto) 4.6 1.6-8.6 10 ^3/uL Lymphocytes # (Auto) 1.9 0.4-5.4 10 ^3/uL Monocytes # (Auto) 0.8 0-1.3 10 ^3/uL Eosinophils # (Auto) 0.2 0-0.8 10 ^3/uL Basophils # (Auto) 0 0-0.2 10 ^3/uL Nucleated Red Blood Cells 0.1 % Sodium Level 140 136-145 mmol/L Potassium Level 4.2 3.5-5.1 mmol/L Chloride Level 105 98-107 mmol/L Carbon Dioxide Level 28 20-31 mmol/L Anion Gap 7 5-15 Blood Urea Nitrogen 13 9-23 mg/dL Creatinine 1.14 0.700-1.30 mg/dL Glomerular Filtration Rate Calc 73 >90 mL/min BUN/Creatinine Ratio 11.4 10.0-20.0 Serum Glucose 87 74-106 mg/dL Calcium Level 9.7 8.7-10.4 mg/dL Troponin I High Sensitivity 5 </=54 ng/L B-Type Natriuretic Peptide 6.02 0-100 pg/mL Time of 1ST Reevaluation: 16:30 Reevaluation 1ST: Unchanged Patient Education/Counseling: Diagnosis, Treatment, Prognosis Family Education/Counseling: No Family Present SEPSIS Sepsis Screen Date sepsis recognized/suspect: Jul 13, 2025 Time Sepsis recognized/suspect: 154 Recent Procedure: No On Antibiotic Therapy: No Respiratory Rate >20: No Heart Rate >90: Yes Temp<36 C (96.8 F) or >38.3 C: No SBP <90 or MAP <65 mmHG: No New Acute Mental Status Change: No Is the patient on CPAP, BIPAP,: No Physician Orders Chest Portable (07/13/25 15:50) Troponin-I Hs (07/13/25 16:50) Troponin-I Hs (07/13/25 18:50) Electrocardigram (07/13/25 16:50) Electrocardigram (07/13/25 18:50) Vital Signs Date Time Temp Pulse Resp B/P (MAP) Pulse Ox O2 Delivery O2 Flow Rate FiO2 07/13/25 16:25 86 07/13/25 16:09 86 29 95 Room Air* 0 21 07/13/25 16:09 98.3 89 18 138/102 (114) 97 98.3 07/13/25 16:03 154 07/13/25 15:50 154 07/13/25 15:39 97.7 154 18 141/100 97 97.7 Laboratory Tests Test 07/13/25 16:00 White Blood Count 7.5 10^3/uL (4.4-10.8) Departure 1 Departure Time of Disposition: 17:12 (Patient presents with palpitations and tachycardia. The patient for further workup and expert consultation) Impression: Primary Impression: Palpitations Additional Impression: Tachycardia Disposition: ADMITTED INPATIENT Admit to: Tele Condition: Guarded Critical Care Note Critical Care Time?: No Stability Stability form required: No I personally scribed for GARDENIA GAFFNEY MD ([email or web address]) on 07/13/25 at 16:03. Electronically submitted by Brian Malcolm ([email or web address]). GARDENIA GAFFNEY MD Jul 13, 2025 16:03
[2025-07-13 16:09] VITALS: PULSE 86; RESP 29; O2SAT 95
[2025-07-13 16:11] LABS: Hematocrit 45.8 % (41.0-53.0); Hemoglobin 15.3 g/dL (13.5-17.5); Mean Corpuscular Hemoglobin 28.7 pg (28.0-32.0); Mean Corpuscular Volume 85.8 fL (80.0-100.0); Nucleated Red Blood Cells % 0.1 %
[2025-07-13 16:18] LABS: Chloride 105 mmol/L (98-107); Potassium 4.2 mmol/L (3.5-5.1); Sodium 140 mmol/L (136-145)
[2025-07-13 16:19] LABS: Anion Gap 7 (5-15); Carbon Dioxide 28 mmol/L (20-31)
[2025-07-13 16:20] LABS: Calcium 9.7 mg/dL (8.7-10.4)
[2025-07-13 16:24] LABS: BUN/Creatinine Ratio 11.4 (10.0-20.0); Blood Urea Nitrogen 13 mg/dL (9-23); Glucose 87 mg/dL (74-106)
--- NOTE | 2025-07-13 16:56 | DVH ---
CHEST RADIOGRAPH INDICATION: weakness TECHNIQUE: Single frontal view of the chest was obtained COMPARISON: XY CHEST PORTABLE on DOS: 06/08/25 FINDINGS: Lines and Tubes: None Lungs: No focal consolidation. Pleura: No effusion. No pneumothorax. Cardiomediastinal contours: Unremarkable Bones: No acute osseous abnormality. IMPRESSION: No acute cardiopulmonary disease.
--- NOTE | 2025-07-13 18:31 | ECG ---
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
--- NOTE | 2025-07-13 18:32 | ECG ---
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
[2025-07-13] MEDS ORDERED: ONDANSETRON HCL 4 MG/2 ML VIAL IV PRN (19:30)
[2025-07-13] MEDS ORDERED: MORPHINE SULFATE 4 MG/ML SYR/VIAL IV PRN (19:30)
[2025-07-13] MEDS ORDERED: ACETAMINOPHEN 325 MG TAB PO PRN (19:30)
[2025-07-13] MEDS ORDERED: NITROGLYCERIN 0.4 MG SL TAB SL PRN (19:30)
--- NOTE | 2025-07-14 01:05 | DVHHP2 ---
History of Present Illness Reason for Visit: Palpitations History of Present Illness 60-year-old male presents for evaluation of palpitations. Patient was seen his primary care provider today when they were checking his vital signs they noticed patient tachycardic in the 140s. They advised patient to present to the emergency department for further evaluation. Patient reports some dizziness and a headache. He states also having mild left-sided chest tightness. Denies shortness or breath. Past Medical History Hypertension Past Surgical History Denies Family History Noncontributory Smoke: No ALCOHOL: none Drugs: None Lives: with Family Review of Systems Review of Systems Review of systems are currently negative otherwise addressed in HPI. Allergies: Coded Allergies: Penicillins (Verified Allergy, Intermediate, 06/08/25) Medications Current Medications Medications Dose Ordered Sig/Leila Route Start Time Stop Time Status Last Admin Dose Admin Amlodipine Besylate 10 mg DAILY PO 07/14/25 10:00 Ondansetron HCl 4 mg Q4HP PRN IV 07/13/25 19:30 Acetaminophen 650 mg Q6HP PRN PO 07/13/25 19:30 Nitroglycerin 0.4 mg Q5MINP PRN SL 07/13/25 19:30 Morphine Sulfate 2 mg Q30M PRN IV 07/13/25 19:30 Exam Vital Signs Vital Signs Date Time Temp Pulse Resp B/P (MAP) Pulse Ox O2 Delivery O2 Flow Rate FiO2 07/13/25 22:00 150 17 103/68 (80) 97 07/13/25 16:09 Room Air* 0 21 07/13/25 16:09 98.3 98.3 Exam Gen: 60-year-old male in mild distress Skin: Warm, dry, normal color and texture, no rash. HEENT: Normocephalic atraumatic, mucous membranes moist and pink. Neck: Cervical and supraclavicular nodes normal without enlargement, trachea is midline, thyroid gland is normal without masses. Pulmonary: Clear to auscultation and percussion bilaterally. Cardiac: Regular rate and rhythm. No murmur Abdomen: Soft, nontender, nondistended, bowel sounds present all 4 quadrants, no guarding, no rigidity, no organomegaly. Extremities: No cyanosis, clubbing, no edema Neuro: Cranial nerves II through XII grossly intact, normal affect and speech, no focal motor deficits. Labs/Xrays ORDERING PHYSICIAN: GARDENIA GAFFNEY MD PROCEDURE(s): CXRP - CHEST PORTABLE REASON: weakness ORDER NUMBER(s): [id number], ACCESSION NUMBER(s): [id number] CHEST RADIOGRAPH INDICATION: weakness TECHNIQUE: Single frontal view of the chest was obtained COMPARISON: XY CHEST PORTABLE on DOS: 06/08/25 FINDINGS: Lines and Tubes: None Lungs: No focal consolidation. Pleura: No effusion. No pneumothorax. Cardiomediastinal contours: Unremarkable Bones: No acute osseous abnormality. IMPRESSION: No acute cardiopulmonary disease. Labs Test 07/13/25 19:59 07/13/25 16:00 Range/Units Troponin I High Sensitivity 6 </=54 ng/L White Blood Count 7.5 4.4-10.8 10^3/uL Red Blood Count 5.33 4.5-5.90 10^6/uL Hemoglobin 15.3 13.5-17.5 g/dL Hematocrit 45.8 41.0-53.0 % Mean Corpuscular Volume 85.8 80.0-100.0 fL Mean Corpuscular Hemoglobin 28.7 28.0-32.0 pg Mean Corpuscular Hemoglobin Concent 33.5 32.0-36.0 g/dL Red Cell Distribution Width 16.1 H 11.8-14.3 % Platelet Count 301 140-450 10^3/uL Mean Platelet Volume 7.0 6.9-10.8 fL Neutrophils (%) (Auto) 61.5 37.0-80.0 % Lymphocytes (%) (Auto) 25.2 10.0-50.0 % Monocytes (%) (Auto) 10.6 0.0-12.0 % Eosinophils (%) (Auto) 2.1 0.0-7.0 % Basophils (%) (Auto) 0.6 0.0-2.0 % Neutrophils # (Auto) 4.6 1.6-8.6 10 ^3/uL Lymphocytes # (Auto) 1.9 0.4-5.4 10 ^3/uL Monocytes # (Auto) 0.8 0-1.3 10 ^3/uL Eosinophils # (Auto) 0.2 0-0.8 10 ^3/uL Basophils # (Auto) 0 0-0.2 10 ^3/uL Nucleated Red Blood Cells 0.1 % Sodium Level 140 136-145 mmol/L Potassium Level 4.2 3.5-5.1 mmol/L Chloride Level 105 98-107 mmol/L Carbon Dioxide Level 28 20-31 mmol/L Anion Gap 7 5-15 Blood Urea Nitrogen 13 9-23 mg/dL Creatinine 1.14 0.700-1.30 mg/dL Glomerular Filtration Rate Calc 73 >90 mL/min BUN/Creatinine Ratio 11.4 10.0-20.0 Serum Glucose 87 74-106 mg/dL Calcium Level 9.7 8.7-10.4 mg/dL B-Type Natriuretic Peptide 6.02 0-100 pg/mL SEPSIS Sepsis Screen Date sepsis recognized/suspect: Jul 13, 2025 Time Sepsis recognized/suspect: 1540 Recent Procedure: No On Antibiotic Therapy: No Respiratory Rate >20: No Heart Rate >90: Yes Temp<36 C (96.8 F) or >38.3 C: No SBP <90 or MAP <65 mmHG: No New Acute Mental Status Change: No Is the patient on CPAP, BIPAP,: No Physician Orders Amlodipine Tablet (Norvasc Tablet) (07/14/25 10:00) * Cardiology Consult (07/13/25:) Admit (07/13/25:25) Ondansetron Hcl (Zofran) (07/13/25 19:30) Cardiac Diet-2gna,Lofat,Lochol (07/14/25 Breakfast) Echo 2d Mode Cardiac Dop (07/13/25:25) Condition: Fair (07/13/25:) Acetaminophen Tablet (Tylenol Tablet) (07/13/25 19:30) Bedrest With Bathroom Privileg (07/13/25:) Nitroglycerin Sublingual (Ntrostat Subli (07/13/25:30) Stat Ekg For Chest Pain (07/13/25:) Notify Of Changes From Base (07/13/25:) Customer Advisor Specialist For 24 Hours (07/13/25:25) Emergency Dysrhythmia Protocol (07/13/25:25) Rhythm Strips Once Every Shift (07/13/25:25) Oxygen By Nasal Cannula (07/13/25 19:25) Morphine Sulfate Injection (07/13/25 19:30) Vital Signs Date Time Temp Pulse Resp B/P (MAP) Pulse Ox O2 Delivery O2 Flow Rate FiO2 07/13/25 22:00 150 17 103/68 (80) 97 07/13/25 20:00 85 07/13/25 20:00 83 26 131/98 (109) 99 07/13/25 18:25 78 07/13/25 18:00 84 22 122/89 (100) 97 Laboratory Tests Test 07/13/25 16:00 White Blood Count 7.5 10^3/uL (4.4-10.8) Assessment/Plan Assessment/Plan Assessment Sinus tachycardia Palpitations Hypertension Plan Admit the patient to telemetry to the hospitalist Cardiology consultation Echocardiogram pending Continue treatment per orders. Plan discussed with: Patient My Orders Orders - ELAINE GIL AGACNP Procedure Category Date Status Time Amlodipine Tablet PHA 07/14/25 In Process (Norvasc Tablet) 10:00 * Cardiology Consult CONS 07/13/25 Transmitted 19:25 Admit ADMIT 07/13/25 Transmitted 19:25 Ondansetron Hcl PHA 07/13/25 In Process (Zofran) 19:30 Cardiac DIET 07/14/25 Transmitted Diet-2gna,Lofat,Lochol Breakfast Echo 2d Mode Cardiac US 07/13/25 Logged DOP 19:25 Condition: Fair LIYAH 07/13/25 In Process 19:25 Acetaminophen Tablet PHA 07/13/25 In Process (Tylenol Tablet) 19:30 Bedrest With Bathroom LIYAH 07/13/25 In Process Privileg 19:25 Nitroglycerin PHA 07/13/25 In Process Sublingual (Ntrostat 19:30 Stat Ekg For Chest LIYAH 07/13/25 In Process Pain 19:25 Notify Md Of Changes LIYAH 07/13/25 In Process From Base 19:25 Customer Advisor Specialist For LIYAH 07/13/25 In Process 24 Hours 19:25 Emergency Dysrhythmia LIYAH 07/13/25 In Process Protocol 19:25 Rhythm Strips Once LIYAH 07/13/25 In Process Every Shift 19:25 Oxygen By Nasal RT 07/13/25 Transmitted Cannula 19:25 Morphine Sulfate PHA 07/13/25 In Process Injection 19:30 Date of Service: Jul 13, 2025 Billing Provider: ELAINE GIL Common Visit Codes: [id number] INP/OBS CARE (HIGH) ELAINE GIL Jul 14, 2025 01:05
[2025-07-14 01:45] VITALS: PULSE 72; RESP 19; O2SAT 96
[2025-07-14 02:32] LABS: Triglycerides 89 mg/dL (< 150)
[2025-07-14 02:34] LABS: Cholesterol 146 mg/dL (< 200)
[2025-07-14 02:35] LABS: HDL Cholesterol 33 mg/dL (40-59)
[2025-07-14 07:30] VITALS: PULSE 72; RESP 18; TEMP 98.4; O2SAT 93
[2025-07-14 11:00] VITALS: BP 127/84; PULSE 73; RESP 20; O2SAT 95
--- NOTE | 2025-07-14 13:20 | DVHDS2 ---
Discharge Summary Date of Admission Jul 13, 2025 at 19:25 Date of Discharge: Jul 14, 2025 Labs/Diagnostic Data: Laboratory Results Test 07/13/25 19:59 07/13/25 16:00 Troponin I High Sensitivity 6 ng/L (</=54) Triglycerides Level 89 mg/dL (< 150) Cholesterol Level 146 mg/dL (< 200) LDL Cholesterol 99 mg/dL (< 100) HDL Cholesterol 33 mg/dL (40-59) Thyroid Stimulating Hormone (TSH) 1.38 uIU/mL (0.55-4.78) White Blood Count 7.5 10^3/uL (4.4-10.8) Red Blood Count 5.33 10^6/uL (4.5-5.90) Hemoglobin 15.3 g/dL (13.5-17.5) Hematocrit 45.8 % (41.0-53.0) Mean Corpuscular Volume 85.8 fL (80.0-100.0) Mean Corpuscular Hemoglobin 28.7 pg (28.0-32.0) Mean Corpuscular Hemoglobin Concent 33.5 g/dL (32.0-36.0) Red Cell Distribution Width 16.1 % (11.8-14.3) Platelet Count 301 10^3/uL (140-450) Mean Platelet Volume 7.0 fL (6.9-10.8) Neutrophils (%) (Auto) 61.5 % (37.0-80.0) Lymphocytes (%) (Auto) 25.2 % (10.0-50.0) Monocytes (%) (Auto) 10.6 % (0.0-12.0) Eosinophils (%) (Auto) 2.1 % (0.0-7.0) Basophils (%) (Auto) 0.6 % (0.0-2.0) Neutrophils # (Auto) 4.6 10 ^3/uL (1.6-8.6) Lymphocytes # (Auto) 1.9 10 ^3/uL (0.4-5.4) Monocytes # (Auto) 0.8 10 ^3/uL (0-1.3) Eosinophils # (Auto) 0.2 10 ^3/uL (0-0.8) Basophils # (Auto) 0 10 ^3/uL (0-0.2) Nucleated Red Blood Cells 0.1 % Sodium Level 140 mmol/L (136-145) Potassium Level 4.2 mmol/L (3.5-5.1) Chloride Level 105 mmol/L (98-107) Carbon Dioxide Level 28 mmol/L (20-31) Anion Gap 7 (5-15) Blood Urea Nitrogen 13 mg/dL (9-23) Creatinine 1.14 mg/dL (0.700-1.30) Glomerular Filtration Rate Calc 73 mL/min (>90) BUN/Creatinine Ratio 11.4 (10.0-20.0) Serum Glucose 87 mg/dL (74-106) Calcium Level 9.7 mg/dL (8.7-10.4) B-Type Natriuretic Peptide 6.02 pg/mL (0-100) Other Laboratory Tests 07/13/25 16:00 Brief Hx & Hospital Course: 60-year-old male presents for evaluation of palpitations. Patient was seen his primary care provider today when they were checking his vital signs they noticed patient tachycardic in the 140s. They advised patient to present to the emergency department for further evaluation. Patient reports some dizziness and a headache. He states also having mild left-sided chest tightness. Denies shortness or breath. EKG showed sinus tachycardia got better and troponins negative Condition at Discharge: Good Final Diagnosis/Problems List sinus tachycardia chest pain due to cosctochondritis Discharge Disposition: Home Discharge Instruct/Medications Diet: Regular Activity: No Restrictions, As Tolerated Follow Up/Referral: PCP in 7 days Medications: same home medications Scheduled Amlodipine Besylate (Amlodipine Besylate), 1 TAB PO DAILY, (Reported) Calcium Carbonate-Simethicone (Maalox Max 1000-60 mg), 1 CHW PO BID Pantoprazole Sodium Sesquihydr (Pantoprazole Sodium), 40 MG PO DAILY Discharge Statement: "Patient was advised to return to the ER or call 911 if any headaches, dizziness, shortness of breath, chest pain, abdominal pain, bleeding, fevers, or worsening of medical condition. Patient was counseled about treatment plan, medications, possible side effects, patientverbalized understanding. All questions were answered to the best of my ability. This discharge took greater then 30 minutes in planning, reviewing documentation, counseling the patient, and discussing with other team members." ASSESSMENT ASSESSMENT Assessment sinus tachycardia chest pain due to cosctochondritis Date of Service: Jul 14, 2025 Billing Provider: MARIA FERNANDA CORTEZ MD Common Visit Codes: 11713-KVW/OBS DISCH DAY >30min MARIA FERNANDA CORTEZ MD Jul 14, 2025 13:20
== END 2025-07-14 11:56 | disposition home or self-care (01) | DRG 203 ==
LOC: ER 15:36 → OVERFLOW 19:25
PROVIDERS: ADMIT Hospitalist; ATTEND Hospitalist
DX: M94.0 Chondrocostal junction syndrome [Tietze] (principal); I16.0 Hypertensive urgency; I10 Essential (primary) hypertension; R00.0 Tachycardia, unspecified; Z88.0 Allergy status to penicillin
CPT/HCPCS: 36415; 71045; 80048; 80061; 83880; 84443; 84484; 85025; 93005; G0378

== ENCOUNTER 2025-07-15 09:14 | Outpatient (CLI) | payer MEDICAID ==
[2025-07-15 10:33] LABS: Hematocrit 49.1 % (41.0-53.0); Hemoglobin 16.1 g/dL (13.5-17.5); Mean Corpuscular Hemoglobin 28.3 pg (28.0-32.0); Mean Corpuscular Volume 86.5 fL (80.0-100.0); Nucleated Red Blood Cells % 0.1 %
[2025-07-15 10:54] LABS: Alanine Aminotransferase 25 U/L (7-40); Alkaline Phosphatase 100 U/L (46-116); Anion Gap 7 (5-15); Calcium 10.1 mg/dL (8.7-10.4); Carbon Dioxide 30 mmol/L (20-31); Chloride 104 mmol/L (98-107); Potassium 4.7 mmol/L (3.5-5.1); Sodium 141 mmol/L (136-145)
[2025-07-15 10:55] LABS: BUN/Creatinine Ratio 8.7 (10.0-20.0); Blood Urea Nitrogen 10 mg/dL (9-23); Glucose 102 mg/dL (74-106); Total Protein 8.0 g/dL (5.7-8.2); Triglycerides 82 mg/dL (< 150)
[2025-07-15 10:56] LABS: Albumin 4.9 g/dL (3.2-4.8)
[2025-07-15 10:57] LABS: Bilirubin, Total 0.5 mg/dL (0.2-1.0)
[2025-07-15 11:03] LABS: HDL Cholesterol 35 mg/dL (40-59)
[2025-07-15 11:10] LABS: Cholesterol 148 mg/dL (< 200)
[2025-07-15 11:13] LABS: Prostate Specific Antigen 1.83 ng/mL (0.0-4.0)
[2025-07-15 12:04] LABS: Hepatitis A Total Antibody Positive (Negative); Hepatitis C Antibody Negative (Negative)
[2025-07-15 12:05] LABS: Hepatitis B Surface Antigen Negative (Negative)
== END 2025-07-15 17:00 | disposition home or self-care (01) ==
LOC: LAB 09:14
PROVIDERS: ATTEND Licensed Practical Nurse
DX: K57.90 Diverticulosis of intestine, part unspecified, without perforation or abscess without bleeding (principal); E55.9 Vitamin D deficiency, unspecified; R53.0 Neoplastic (malignant) related fatigue; Z00.01 Encounter for general adult medical examination with abnormal findings; Z13.29 Encounter for screening for other suspected endocrine disorder; Z13.1 Encounter for screening for diabetes mellitus; Z79.899 Other long term (current) drug therapy
CPT/HCPCS: 36415; 80053; 80061; 82043; 82274; 82306; 82607; 82746; 83036; 84153; 84443; 85025; 86704; 86706; 86708; 86803; 87340